=== PATIENT | male | born 1965 | race Hispanic/Latino ===

== ENCOUNTER 2018-07-12 20:24 | Emergency (ER) | payer OTHER ==
[~2018-07-12] VITALS: Ht 172.7 cm; Wt 102.5 kg
[~2018-07-12 20:24] MED LIST: METFORMIN HCL500 MG PO
[2018-07-12] MEDS ORDERED: ONDANSETRON HCL INJ 2MG/ML 2ML 2 MG/ML VIAL IV STA (21:03)
[2018-07-12] MEDS ORDERED: MORPHINE SULFATE 2 MG/ML SYR 1ML IV STA (21:03)
[2018-07-12] MEDS ORDERED: KETOROLAC TROMETHAMINE 30 MG/ML VIAL IV ONE (21:03)
[2018-07-12] MEDS ORDERED: SODIUM CHLORIDE 0.9% 1000ML 1,000 ML IV SCH (21:15)
[2018-07-12] MEDS ORDERED: MORPHINE SULFATE INJ 4 MG/ML INJ 1ML IV ONE (21:15)
--- NOTE | 2018-07-12 21:49 | Diagnostic Imaging Report ---
EXAM: CT Abdomen and Pelvis WITHOUT contrast INDICATION: Lower abdominal pain radiating to the back. COMPARISON: None. TECHNIQUE: Abdomen and pelvis were scanned utilizing a multidetector helical scanner from the lung base to the pubic symphysis without administration of IV contrast. Absence of intravenous contrast decreases sensitivity for detection of focal lesions and vascular pathology. Coronal and sagittal reformations were obtained. Routine protocol was performed. IV CONTRAST: None. ORAL CONTRAST: Water RADIATION DOSE: Total DLP: 814.26 mGy*cm Estimated effective dose: (DLP x 0.015 x size factor) mSv COMPLICATIONS: None FINDINGS: LINES and TUBES: None. LOWER THORAX: Multiple tiny nodules scattered throughout the lung bases bilaterally ranging from 2 to 3 mm cervical for instance, a 2 mm nodule in the right middle lobe on image 8 series 2. 2 mm nodules in the left lower lobe on image 11 series 2. HEPATOBILIARY: Diffuse hepatic steatosis with focal fat sparing about the gallbladder fossa. No focal hepatic lesions. No biliary ductal dilation. GALLBLADDER: No radio-opaque stones or sludge. No wall thickening. SPLEEN: No splenomegaly. PANCREAS: No focal masses or ductal dilatation. ADRENALS: No adrenal nodules KIDNEYS/URETERS: No hydronephrosis. No cystic or solid mass lesions. No stones. Mild bilateral perinephric stranding without perinephric fluid collections. GI TRACT: No abnormal distention, wall thickening, or evidence of bowel obstruction. Appendix is normal. PELVIC ORGANS/BLADDER: The prostate measures 5.4 x 4.6 cm on image 85 series 2, mildly enlarged. Punctate phleboliths scattered throughout the pelvis. LYMPH NODES: No lymphadenopathy. VESSELS: Unremarkable. PERITONEUM / RETROPERITONEUM: No free air or fluid. BONES: There are degenerative changes in the lower thoracic spine. SOFT TISSUES: Unremarkable. IMPRESSION: 1. No obstructive uropathy or urolithiasis. 2. Mildly enlarged prostate. 3. Numerous small bilateral pulmonary nodules are nonspecific. If no high risk such as chronic smoking or primary neoplasm, no follow-up warranted as per Fleischner Society criteria. 4. Hepatic steatosis. Signed by: Dr. Jeannie Hollins M.D. on 07/12/2018 9:45 PM
[2018-07-12] MEDS ORDERED: CEFTRIAXONE SOD 1 GM/NS 50 ML 50 ML IV ONE (22:15)
== END 2018-07-12 22:57 | disposition home or self-care (01) ==
LOC: FSED 20:24
DX: R10.30 Lower abdominal pain, unspecified (principal); N30.91 Cystitis, unspecified with hematuria; E11.65 Type 2 diabetes mellitus with hyperglycemia
CPT/HCPCS: 74176; 80053; 81003; 85025; 87086; 87186; 99284; J1885; J2270; J2405